=== PATIENT | female | born 1955 | race Caucasian/White ===

== ENCOUNTER 2016-07-20 15:48 | Emergency (ER) | payer SELFPAY ==
[~2016-07-20] VITALS: Wt 95.0 kg
--- NOTE | 2016-07-20 16:51 | RADRPT ---
PROCEDURE: US right lower extremity veins. CLINICAL INDICATION: Right leg pain and swelling. TECHNIQUE: Multiple longitudinal and transverse images of the right lower extremity veins were obt ained with morgan scale and color Doppler imaging. The common femoral vein, femoral vein, and poplitea l vein were evaluated. 2D grayscale measurements with compression sonography, pulsed Doppler, color Doppler, and pulsed Doppler with augmentation. COMPARISON: No prior studies are available for comparison. FINDINGS: The right common femoral, femoral and popliteal veins are normally compressible throughout. Color f low demonstrates normal filling of the vessels. Normal waveforms are visualized and there is normal response to augmentation. IMPRESSION: 1. No evidence of deep vein thrombosis involving the right lower extremity. RPTAT: QQ .Jonah Gil MD, MD Date Time Electronically viewed and signed by .Jonah Gil MD, on 07/20/2016 16:50 .R/
[2016-07-20 17:40] LABS: ADD SCAN DIFF NO
[2016-07-20 17:42] LABS: BASOPHILS % 0.4 % (0.0-2.0); EOSINOPHILS # 0.3 10^3/ul (0.0-0.5); EOSINOPHILS % 2.7 % (0.0-7.0); HEMATOCRIT 42.1 % (37.0-47.0); HEMOGLOBIN 13.8 g/dl (12.0-16.0); LYMPHOCYTES % 39.2 % (15.0-51.0); MEAN CORPUSCULAR HEMOGLOBIN 28.8 pg (29.0-33.0); MEAN CORPUSCULAR HGB CONC 32.8 g/dl (32.0-37.0); MEAN CORPUSCULAR VOLUME 87.7 fl (82.0-101.0); MEAN PLATELET VOLUME 10.2 fl (7.4-10.4); MONOCYTE # 0.7 10^3/ul (0.3-0.9); MONOCYTES % 6.9 % (0.0-11.0); NEUTROPHIL # 5.2 10^3/ul (1.6-7.5); NEUTROPHILS % 50.5 % (39.0-77.0); PLATELET COUNT 307 10^3/UL (140-415); RED CELL DISTRIBUTION WIDTH 11.9 % (11.5-14.5); WHITE BLOOD COUNT 10.2 10^3/ul (4.8-10.8)
[2016-07-20 17:50] LABS: ALBUMIN 4.4 g/dl (3.3-4.9)
[2016-07-20 17:51] LABS: POTASSIUM 4.1 mmol/L (3.5-5.1)
[2016-07-20 17:53] LABS: ALBUMIN/GLOBULIN RATIO 1.22; BILIRUBIN,INDIRECT 0.5 mg/dl (0-1.1); BILIRUBIN,TOTAL 0.5 mg/dl (0.2-1.3); CREATININE 0.72 mg/dl (0.44-1.00)
[2016-07-20 17:54] LABS: CALCIUM 9.9 mg/dl (8.4-10.2)
--- NOTE | 2016-07-20 18:40 | ERD ---
ER Documentation Chief Complaint Date/Time DATE: 07/20/16 TIME: 18:25 Chief Complaint RIGHT LEG REDNESS AND SWELLING FOR THE PAST FEW WKS. NON TRAUMATIC HPI This is a very pleasant 61-year-old female that presents to the emergency department with swelling and erythremia above her right knee and right calf. The patient denies any trauma to her right knee but does indicate she has been favoring the right knee due to a fracture of the left metatarsal with the patient was in a cast for roughly 8 weeks. The cath has subsequently been removed and the patient indicates swelling to the right lower extremity has been present for roughly 24 hours. She has had no fevers no shaking or chills. She has no shortness of breath at rest or exertion. The patient is stating that she has no tenderness over the right calf. She spoke with her primary care physician and was instructed to come to the emergency department to be further evaluated. She has had no fevers no shaking or chills. ROS All systems reviewed and are negative except as per history of present illness. PMhx/Soc History of Surgery: Yes (HYSTERECTOMY) Hx Alcohol Use: Yes Hx Substance Use: No Hx Tobacco Use: No Smoking Status: Never smoker Physical Exam Vitals Vital Signs Date Time Temp Pulse Resp B/P Pulse Ox O2 Delivery O2 Flow Rate FiO2 07/20/16 15:51 97.8 68 20 185/83 98 Physical Exam Constitutional:Well-developed. Well-nourished. Respiratory: Not using accessory muscles of respiration.Lungs were clear to auscultation bilaterally. No rhonchi. No rales. No wheezing. Cardiovascular: Regular rate regular rhythm.No murmurs. No rubs were appreciated.S1, S2 normal. Distal pulses are palpable 2+ bilaterally. Muscle skeletal: Full range of motion of both the upper and lower extremities bilaterally.Normal muscle tone.No assymetrical calf tenderness or swelling. Mild effusion over the right knee and distal right femur. Ritika's test negative. SKIN: Mild erythremia with no fluctuance or induration over the proximal aspect of the right knee. Pain not out of proportion to physical exam. No petechiae no purpura. No tenderness peer NEURO: Patient was alert, awake, orientated x3.Gait observed and normal with no ataxia.Speech had regular rate and rhythm. No focal neurological deficits. Result Diagram: 07/20/16 1730 07/20/16 1730 Results 24 hrs Laboratory Tests Test 07/20/16 17:30 Alanine Aminotransferase (ALT/SGPT) 29IU/L Albumin 4.4g/dl Albumin/Globulin Ratio 1.22 Alkaline Phosphatase 102IU/L Anion Gap 18 Aspartate Amino Transf (AST/SGOT) 27IU/L Basophils # 0.010^3/ul Basophils % 0.4% Blood Urea Nitrogen 16mg/dl Calcium Level 9.9mg/dl Carbon Dioxide Level 27mmol/L Chloride Level 103mmol/L Creatinine 0.72mg/dl Direct Bilirubin 0.00mg/dl Eosinophils # 0.310^3/ul Eosinophils % 2.7% Globulin 3.60g/dl Glucose Level 103mg/dl Hematocrit 42.1% Hemoglobin 13.8g/dl Indirect Bilirubin 0.5mg/dl Lymphocytes # 4.010^3/ul Lymphocytes % 39.2% Mean Corpuscular Hemoglobin 28.8pg Mean Corpuscular Hemoglobin Concent 32.8g/dl Mean Corpuscular Volume 87.7fl Mean Platelet Volume 10.2fl Monocytes # 0.710^3/ul Monocytes % 6.9% Neutrophils # 5.210^3/ul Neutrophils % 50.5% Nucleated Red Blood Cells # 0.010^3/ul Nucleated Red Blood Cells % 0.0/100WBC Platelet Count 91048^3/UL Potassium Level 4.1mmol/L Red Blood Count 4.8010^6/ul Red Cell Distribution Width 11.9% Sodium Level 144mmol/L Total Bilirubin 0.5mg/dl Total Protein 8.0g/dl White Blood Count 10.210^3/ul Procedures/MDM This patient presented to the emergency department with mild erythema and swelling of the right lower extremity. The patient received blood work which showed no erythremia or evidence of an infectious process. My physical exam findings did not suggest cellulitis or an abscess. The patient no physical exam findings to suggest necrotizing fasciitis or septic arthritis. I obtained a venous duplex ultrasound of the right lower extremity and there is no evidence of a DVT. The patient had been sent by her primary care physician Dr. Villareal's partner Dr. Ha. The patient is going to be undergoing an MRI next week of the right knee and stated she felt comfortable being discharged home. The patient was discharged home in fair condition. They were instructed to return to the emergency department at any time if there was any worsening of their condition. The patient stated they would follow up with their PCP in the next 24-48 hours to initiate a suitable medication regimen under the care of their PCP as well as to allow their PCP to monitor any drug reactions. The patient was discharged home with prescriptions after they gave informed consent to the new medication. They were also fully informed by myself on the adverse effects and adverse drug interactions in order to provide adequate safeguards to prevent possible adverse reactions to medications. Departure Diagnosis: Primary Impression: Effusion of right knee Condition: Fair Patient Instructions: Peripheral Edema, Unilateral DAVID ALVAREZ Jul 20, 2016 18:37
[2016-07-20 19:24] LABS: INR 0.9; PROTIME 12.1 Sec (12.2-14.2); PT RATIO 0.9
[2016-07-20 19:25] LABS: PARTIAL THROMBOPLASTIN TIME 29.9 Sec (25.0-35.0)
== END 2016-07-20 18:24 | disposition home or self-care (01) ==
LOC: E/R 15:48
DX: M25.461 Effusion, right knee (principal)
CPT/HCPCS: 80053; 85025; 85610; 85730; 93971; 99283